=== PATIENT | male | born 1980 | race Caucasian/White ===

== ENCOUNTER 2017-01-31 13:24 | Emergency (ER) | payer OTHER ==
[~2017-01-31] VITALS: Ht 160 cm; Wt 62.7 kg
[~2017-01-31 13:24] MED LIST: NOCURR
[2017-01-31] MEDS ORDERED: HYDR25TA PO (13:33)
[2017-01-31 16:09] VITALS: BP 133/111
== END 2017-01-31 16:10 | disposition home or self-care (01) ==
LOC: EMS 13:26
DX: S83.92XA Sprain of unspecified site of left knee, initial encounter (principal); F15.10 Other stimulant abuse, uncomplicated; I10 Essential (primary) hypertension; F12.90 Cannabis use, unspecified, uncomplicated; X58.XXXA Exposure to other specified factors, initial encounter; Y93.89 Activity, other specified; Y92.89 Other specified places as the place of occurrence of the external cause; Y99.8 Other external cause status
CPT/HCPCS: 99283

== ENCOUNTER 2017-03-06 05:25 | Emergency (ER) | payer OTHER ==
[~2017-03-06] VITALS: Ht 162.6 cm; Wt 66.0 kg
[~2017-03-06 05:25] MED LIST changes: +HYDR25TA PO
[2017-03-06 06:21] VITALS: BP 131/110
== END 2017-03-06 06:26 | disposition home or self-care (01) ==
LOC: EMS 05:26
DX: T23.221A Burn of second degree of single right finger (nail) except thumb, initial encounter (principal); I10 Essential (primary) hypertension; F12.90 Cannabis use, unspecified, uncomplicated; X16.XXXA Contact with hot heating appliances, radiators and pipes, initial encounter; Y93.89 Activity, other specified; Y92.89 Other specified places as the place of occurrence of the external cause; Y99.8 Other external cause status
CPT/HCPCS: 99282

== ENCOUNTER 2017-09-25 12:41 | Emergency (ER) | payer OTHER ==
[~2017-09-25] VITALS: Ht 160 cm; Wt 70.5 kg
[~2017-09-25 12:41] MED LIST changes: -NOCURR
[2017-09-25] MEDS ORDERED: KETOROLAC TROMETHAMINE 30 MG/ML VIAL IVP ONE (15:00)
[2017-09-25] MEDS ORDERED: ONDANSETRON HCL 4 MG/2 ML VIAL IVP ONE (15:00)
[2017-09-25] MEDS ORDERED: DiphenhydrAMINE HCL 50 MG/ML VIAL IVP ONE (15:00)
[2017-09-25] MEDS ORDERED: SODIUM CHLORIDE 0.9% 500 ML IV ONE (15:00)
[2017-09-25 17:25] VITALS: BP 130/100
== END 2017-09-25 17:34 | disposition home or self-care (01) ==
LOC: EMS 12:42
DX: G43.909 Migraine, unspecified, not intractable, without status migrainosus (principal); F19.10 Other psychoactive substance abuse, uncomplicated; F12.10 Cannabis abuse, uncomplicated; I10 Essential (primary) hypertension; Z76.0 Encounter for issue of repeat prescription
CPT/HCPCS: 96361; 96374; 96375; 99285; J1200; J1885; J2405; J7040

== ENCOUNTER 2017-11-08 05:22 | Emergency (ER) | payer OTHER ==
[~2017-11-08] VITALS: Ht 160 cm; Wt 65.9 kg
[2017-11-08 05:25] VITALS: BP 146/100
[2017-11-08] MEDS ORDERED: IBUP-2070 PO (05:28)
[2017-11-08] MEDS ORDERED: EMTR1TAB16 PO (05:28)
[2017-11-08] MEDS ORDERED: HYDR25TA PO (05:28)
== END 2017-11-08 07:58 | disposition left against medical advice (07) ==
LOC: EMS 05:23
DX: R10.9 Unspecified abdominal pain (principal); F12.90 Cannabis use, unspecified, uncomplicated; F15.90 Other stimulant use, unspecified, uncomplicated; Z53.21 Procedure and treatment not carried out due to patient leaving prior to being seen by health care provider

== ENCOUNTER 2017-11-19 00:04 | Emergency (ER) | payer OTHER ==
[~2017-11-19] VITALS: Ht 160 cm; Wt 68.2 kg
[~2017-11-19 00:04] MED LIST changes: +EMTR1TAB16 PO; +IBUP-2070 PO
[2017-11-19 00:12] VITALS: BP 160/108
== END 2017-11-19 01:25 | disposition left against medical advice (07) ==
LOC: EMS 00:05
DX: R51 Headache (principal); Z53.21 Procedure and treatment not carried out due to patient leaving prior to being seen by health care provider

== ENCOUNTER 2018-02-03 17:53 | Emergency (ER) | payer OTHER ==
[~2018-02-03] VITALS: Ht 160 cm; Wt 68.0 kg
[2018-02-03 19:35] VITALS: BP 142/85
== END 2018-02-03 19:40 | disposition home or self-care (01) ==
LOC: EMS 17:56
DX: K08.89 Other specified disorders of teeth and supporting structures (principal); R03.0 Elevated blood-pressure reading, without diagnosis of hypertension; I10 Essential (primary) hypertension; F12.90 Cannabis use, unspecified, uncomplicated; F19.90 Other psychoactive substance use, unspecified, uncomplicated
CPT/HCPCS: 99283

== ENCOUNTER 2018-07-16 05:32 | Emergency (ER) | payer OTHER ==
[~2018-07-16] VITALS: Ht 160 cm; Wt 71.4 kg
[~2018-07-16 05:32] MED LIST changes: -HYDR25TA PO; -IBUP-2070 PO
[2018-07-16] MEDS ORDERED: SIMV-261 PO (05:42)
[2018-07-16 06:23] VITALS: BP 152/97
[2018-07-16] MEDS ORDERED: HydrOXYzine HCL 50 MG TABLET PO ONE (06:30)
[2018-07-16] MEDS ORDERED: SODIUM PHOS/SODIUM BIPHOS 133 ML ENEMA PR ONE (06:30)
== END 2018-07-16 06:55 | disposition home or self-care (01) ==
LOC: EMS 05:32
DX: F15.180 Other stimulant abuse with stimulant-induced anxiety disorder (principal); K59.00 Constipation, unspecified; F12.90 Cannabis use, unspecified, uncomplicated; I10 Essential (primary) hypertension; F32.9 Major depressive disorder, single episode, unspecified; Z79.899 Other long term (current) drug therapy

== ENCOUNTER 2019-04-02 08:47 | Emergency (ER) | payer OTHER ==
[~2019-04-02] VITALS: Ht 162.6 cm; Wt 75.5 kg
[~2019-04-02 08:47] MED LIST changes: -EMTR1TAB16 PO; +SIMV-261 PO
[2019-04-02] MEDS ORDERED: HALOPERIDOL 5 MG TABLET PO ONE (09:15)
[2019-04-02] MEDS ORDERED: LORazepam 2 MG TABLET PO ONE (09:15)
[2019-04-02 10:26] VITALS: BP 152/98
== END 2019-04-02 10:27 | disposition home or self-care (01) ==
LOC: EMS 08:49
DX: F15.10 Other stimulant abuse, uncomplicated (principal); F41.9 Anxiety disorder, unspecified; F32.9 Major depressive disorder, single episode, unspecified; F12.90 Cannabis use, unspecified, uncomplicated; F19.90 Other psychoactive substance use, unspecified, uncomplicated

== ENCOUNTER 2019-04-10 05:57 | Emergency (ER) | payer OTHER ==
[~2019-04-10] VITALS: Ht 162.6 cm; Wt 75.4 kg
[2019-04-10 06:57] LABS: EOSINOPHILS % (AUTO) 0.5 % (1.0-6.0); HEMATOCRIT 45.2 % (41-53); HEMOGLOBIN 15.2 g/dL (13.5-17.5); LYMPHOCYTES % (AUTO) 22.5 % (22.0-44.0); MEAN CORPUSCULAR HEMOGLOBIN 29.4 pg (26.0-34.0); MEAN CORPUSCULAR HGB CONC 33.6 G/dL (31.0-37.0); MEAN CORPUSCULAR VOLUME 87 fL (80-100); MONOCYTES % (AUTO) 10.5 % (2.0-9.0); PLATELET COUNT (AUTO) 296 K/uL (150-450); RED BLOOD CELL COUNT(AUTO) 5.18 MIL/uL (4.50-5.90); RED CELL DISTRIBUTION WIDTH 13.5 % (11.5-14.5)
[2019-04-10 06:58] LABS: BASOPHILS % (AUTO) 0.5 % (0.0-2.0); LYMPHOCYTES # (AUTO) 1.7 K/uL (1.0-4.8); MONOCYTES # (AUTO) 0.8 K/uL (0.1-1.0)
[2019-04-10 07:19] LABS: ANION GAP 12 mmol/L (8-16); CALCIUM, TOTAL 9.3 mg/dL (8.8-10.5); CARBON DIOXIDE 24 mmol/L (22-29); CHLORIDE 102 mmol/L (98-107); CREATININE 0.94 mg/dL (0.60-1.30); GLOMERULAR FILTR. RATE CALC > 60 mL/min (>60); GLUCOSE,RANDOM 94 mg/dL (70-110); POTASSIUM 3.6 mmol/L (3.5-5.1); SODIUM SERUM 138 mmol/L (136-145); UREA NITROGEN, BLOOD 13 mg/dL (7-18)
[2019-04-10 07:23] LABS: ALANINE AMINOTRANSFERASE 31 U/L (12-78); ALBUMIN 4.6 g/dL (3.4-5.0); ALKALINE PHOSPHATASE 91 U/L (46-116); ASPARTATE AMINOTRANSFERASE 23 U/L (15-37); BILIRUBIN,TOTAL 0.6 mg/dL (0.1-1.0); LIPASE 192 U/L (73-393); TOTAL PROTEIN, SERUM 7.7 g/dL (6.4-8.2)
[2019-04-10 07:34] LABS: AMPHET/METH SCREEN,URINE POSITIVE (NEGATIVE); BARBITURATE SCREEN, URINE NEGATIVE (NEGATIVE); BENZODIAZEPINES SCREEN,URINE NEGATIVE (NEGATIVE); CANNABINOID SCREEN,URINE NEGATIVE (NEGATIVE); COCAINE SCREEN,URINE NEGATIVE (NEGATIVE); METHADONE SCREEN, URINE NEGATIVE (NEGATIVE); OPIATE SCREEN,URINE NEGATIVE (NEGATIVE); PHENCYCLIDINE SCREEN,URINE NEGATIVE (NEGATIVE)
[2019-04-10 08:03] VITALS: BP 155/113
== END 2019-04-10 08:16 | disposition home or self-care (01) ==
LOC: EMS 05:58
DX: F41.9 Anxiety disorder, unspecified (principal); F15.90 Other stimulant use, unspecified, uncomplicated; F32.9 Major depressive disorder, single episode, unspecified; I10 Essential (primary) hypertension; F12.90 Cannabis use, unspecified, uncomplicated
CPT/HCPCS: 36415; 80053; 80307; 83690; 85025; 99284; G0480

== ENCOUNTER 2019-04-12 21:04 | Emergency (ER) | payer OTHER | END 2019-04-12 21:30 | disposition left against medical advice (07) | LOC: EMS 21:05 | DX: M79.89 Other specified soft tissue disorders (principal); Z53.21 Procedure and treatment not carried out due to patient leaving prior to being seen by health care provider ==

== ENCOUNTER 2019-04-19 05:19 | Emergency (ER) | payer OTHER ==
[~2019-04-19] VITALS: Ht 162.6 cm; Wt 75.5 kg
[2019-04-19 06:09] LABS: APPEARANCE,URINE CLEAR (CLEAR); BILIRUBIN,URINE NEGATIVE (NEGATIVE); GLUCOSE, URINE (UA) NEGATIVE (NEGATIVE); KETONES,URINE NEGATIVE (NEGATIVE); LEUKOCYTE ESTERASE ,URINE NEGATIVE (NEGATIVE); NITRATE,URINE NEGATIVE (NEGATIVE); OCCULT BLOOD,URINE NEGATIVE (NEGATIVE); PROTEIN,URINE NEGATIVE (NEGATIVE); UROBILINOGEN,URINE 0.2 mg/dL (<=1.0)
[2019-04-19 06:11] LABS: BASOPHILS % (AUTO) 0.3 % (0.0-2.0); EOSINOPHILS % (AUTO) 0.2 % (1.0-6.0); HEMATOCRIT 47.4 % (41-53); HEMOGLOBIN 16.1 g/dL (13.5-17.5); LYMPHOCYTES # (AUTO) 1.4 K/uL (1.0-4.8); MEAN CORPUSCULAR HEMOGLOBIN 29.9 pg (26.0-34.0); MEAN CORPUSCULAR HGB CONC 34.1 G/dL (31.0-37.0); MEAN CORPUSCULAR VOLUME 88 fL (80-100); MONOCYTES # (AUTO) 0.5 K/uL (0.1-1.0); MONOCYTES % (AUTO) 6.8 % (2.0-9.0); NEUTROPHILS # (AUTO) 5.9 K/uL (1.8-7.7); NEUTROPHILS % (AUTO) 74.7 % (40.0-70.0); PLATELET COUNT (AUTO) 379 K/uL (150-450); RED BLOOD CELL COUNT(AUTO) 5.39 MIL/uL (4.50-5.90); RED CELL DISTRIBUTION WIDTH 13.5 % (11.5-14.5)
[2019-04-19 06:13] LABS: AMPHET/METH SCREEN,URINE POSITIVE (NEGATIVE); BARBITURATE SCREEN, URINE NEGATIVE (NEGATIVE); BENZODIAZEPINES SCREEN,URINE NEGATIVE (NEGATIVE); CANNABINOID SCREEN,URINE NEGATIVE (NEGATIVE); COCAINE SCREEN,URINE NEGATIVE (NEGATIVE); METHADONE SCREEN, URINE NEGATIVE (NEGATIVE); OPIATE SCREEN,URINE NEGATIVE (NEGATIVE); PHENCYCLIDINE SCREEN,URINE NEGATIVE (NEGATIVE)
[2019-04-19 06:21] LABS: BACTERIA,URINE None Seen /HPF (None Seen); RBC,URINE 0-2 /HPF (0-2); SQUAMOUS EPITHELIAL CELL,UR None Seen /LPF (None Seen); WBC,URINE 0-2 /HPF (0-5)
[2019-04-19 06:21] LABS: ALANINE AMINOTRANSFERASE 25 U/L (12-78); ALKALINE PHOSPHATASE 92 U/L (46-116); ANION GAP 7 mmol/L (8-16); ASPARTATE AMINOTRANSFERASE 25 U/L (15-37); BILIRUBIN,TOTAL 0.5 mg/dL (0.1-1.0); CARBON DIOXIDE 30 mmol/L (22-29); CHLORIDE 100 mmol/L (98-107); GLOMERULAR FILTR. RATE CALC > 60 mL/min (>60); GLUCOSE,RANDOM 107 mg/dL (70-110); POTASSIUM 4.9 mmol/L (3.5-5.1); SODIUM SERUM 137 mmol/L (136-145); TOTAL PROTEIN, SERUM 8.5 g/dL (6.4-8.2)
[2019-04-19 06:29] LABS: UREA NITROGEN, BLOOD 16 mg/dL (7-18)
[2019-04-19] MEDS ORDERED: ACETAMINOPHEN 500 MG TABLET PO ONE (07:45)
[2019-04-19] MEDS ORDERED: CefTRIAXone SODIUM 1 GM/VIAL IM ONE (08:15)
[2019-04-19] MEDS ORDERED: AZITHROMYCIN 250 MG TABLET PO ONE (08:15)
[2019-04-19 08:35] VITALS: BP 136/97
== END 2019-04-19 08:45 | disposition home or self-care (01) ==
LOC: EMS 05:20
DX: G47.00 Insomnia, unspecified (principal); F20.9 Schizophrenia, unspecified; F15.10 Other stimulant abuse, uncomplicated; F32.9 Major depressive disorder, single episode, unspecified; I10 Essential (primary) hypertension; F19.90 Other psychoactive substance use, unspecified, uncomplicated; Z59.0 Homelessness
CPT/HCPCS: 36415; 80053; 80307; 81001; 85025; 87491; 87591; 93005; 96372; 99284; G0480; J0696

== ENCOUNTER 2020-02-12 11:29 | Emergency (ER) | payer OTHER ==
[~2020-02-12] VITALS: Ht 160 cm; Wt 70.5 kg
[2020-02-12] MEDS ORDERED: ACETAMINOPHEN 325 MG TABLET PO ONE (12:30)
[2020-02-12 12:43] LABS: ANION GAP 7 mmol/L (8-16); CALCIUM, TOTAL 8.8 mg/dL (8.8-10.5); CARBON DIOXIDE 28 mmol/L (22-29); CHLORIDE 102 mmol/L (98-107); CREATININE 1.27 mg/dL (0.60-1.30); GLOMERULAR FILTR. RATE CALC > 60 mL/min (>60); GLUCOSE,RANDOM 100 mg/dL (70-110); POTASSIUM 3.6 mmol/L (3.5-5.1); SODIUM SERUM 137 mmol/L (136-145); UREA NITROGEN, BLOOD 11 mg/dL (7-18)
[2020-02-12 12:49] LABS: ALANINE AMINOTRANSFERASE 33 U/L (12-78); ALKALINE PHOSPHATASE 111 U/L (46-116); ASPARTATE AMINOTRANSFERASE 26 U/L (15-37); BILIRUBIN,TOTAL 0.4 mg/dL (0.1-1.0); TOTAL PROTEIN, SERUM 7.6 g/dL (6.4-8.2)
[2020-02-12 13:04] LABS: BASOPHILS % (AUTO) 0.3 % (0.0-2.0); EOSINOPHILS % (AUTO) 0 % (1.0-6.0); HEMATOCRIT 46.3 % (41-53); HEMOGLOBIN 15.8 g/dL (13.5-17.5); LYMPHOCYTES # (AUTO) 0.8 K/uL (1.0-4.8); LYMPHOCYTES % (AUTO) 17.5 % (22.0-44.0); MEAN CORPUSCULAR HEMOGLOBIN 30.3 pg (26.0-34.0); MEAN CORPUSCULAR HGB CONC 34.1 G/dL (31.0-37.0); MEAN CORPUSCULAR VOLUME 89 fL (80-100); MONOCYTES # (AUTO) 0.5 K/uL (0.1-1.0); MONOCYTES % (AUTO) 11.2 % (2.0-9.0); NEUTROPHILS # (AUTO) 3.3 K/uL (1.8-7.7); PLATELET COUNT (AUTO) 167 K/uL (150-450); RED CELL DISTRIBUTION WIDTH 12.9 % (11.5-14.5)
[2020-02-12 13:46] VITALS: BP 136/97
== END 2020-02-12 14:35 | disposition home or self-care (01) ==
LOC: EMS 11:30
DX: U07.1 COVID-19 (principal); J12.89 Other viral pneumonia; R50.9 Fever, unspecified; M79.10 Myalgia, unspecified site; J45.909 Unspecified asthma, uncomplicated; F32.9 Major depressive disorder, single episode, unspecified; I10 Essential (primary) hypertension; F12.90 Cannabis use, unspecified, uncomplicated; F19.90 Other psychoactive substance use, unspecified, uncomplicated
CPT/HCPCS: 36415; 71045; 80053; 85025; 99284; U0003

== ENCOUNTER 2020-02-17 21:37 | Emergency (ER) | payer OTHER ==
[~2020-02-17] VITALS: Ht 162.6 cm; Wt 69.1 kg
[2020-02-17 23:39] VITALS: BP 140/88
== END 2020-02-18 00:53 | disposition home or self-care (01) ==
LOC: EMS 21:39
DX: U07.1 COVID-19 (principal); F10.10 Alcohol abuse, uncomplicated; F32.9 Major depressive disorder, single episode, unspecified; I10 Essential (primary) hypertension; F12.90 Cannabis use, unspecified, uncomplicated; F19.90 Other psychoactive substance use, unspecified, uncomplicated; J45.909 Unspecified asthma, uncomplicated

== ENCOUNTER 2020-05-19 09:49 | Emergency (ER) | payer OTHER ==
[~2020-05-19] VITALS: Ht 162.6 cm; Wt 72.7 kg
[2020-05-19] MEDS ORDERED: ACETAMINOPHEN 500 MG TABLET PO ONE (11:30)
[2020-05-19 13:11] VITALS: BP 141/92
== END 2020-05-19 13:43 | disposition home or self-care (01) ==
LOC: EMS 09:53
DX: N48.29 Other inflammatory disorders of penis (principal); N48.89 Other specified disorders of penis; J45.909 Unspecified asthma, uncomplicated; F32.9 Major depressive disorder, single episode, unspecified; I10 Essential (primary) hypertension; F12.90 Cannabis use, unspecified, uncomplicated; Z20.828 Contact with and (suspected) exposure to other viral communicable diseases
CPT/HCPCS: 36415; 86592; 86694; 86701; 86702; 86705; 87255; 87491; 87591; 99283; U0003; 12001

== ENCOUNTER 2020-09-23 10:28 | Emergency (ER) | payer OTHER ==
[~2020-09-23] VITALS: Ht 162.6 cm; Wt 70.5 kg
[2020-09-23] MEDS ORDERED: IBUPROFEN 600 MG TABLET PO ONE (11:30)
[2020-09-23] MEDS ORDERED: LORazepam 1 MG TABLET PO ONE (11:30)
[2020-09-23 12:08] VITALS: BP 141/98
== END 2020-09-23 12:12 | disposition home or self-care (01) ==
LOC: EMS 10:28
DX: M79.601 Pain in right arm (principal); F41.9 Anxiety disorder, unspecified; R20.0 Anesthesia of skin; F15.10 Other stimulant abuse, uncomplicated; J45.909 Unspecified asthma, uncomplicated; I10 Essential (primary) hypertension; F32.9 Major depressive disorder, single episode, unspecified; F12.90 Cannabis use, unspecified, uncomplicated; F19.90 Other psychoactive substance use, unspecified, uncomplicated

== ENCOUNTER 2021-03-10 11:17 | Emergency (ER) | payer OTHER ==
[~2021-03-10] VITALS: Ht 162.6 cm; Wt 70.5 kg
[2021-03-10 11:23] VITALS: BP 144/107
== END 2021-03-10 13:17 | disposition left against medical advice (07) ==
LOC: EMS 11:20
DX: Z53.21 Procedure and treatment not carried out due to patient leaving prior to being seen by health care provider (principal)

== ENCOUNTER 2021-04-02 05:31 | Emergency (ER) | payer OTHER ==
[~2021-04-02] VITALS: Ht 162.6 cm; Wt 72.7 kg
[2021-04-02 05:36] VITALS: BP 143/98
== END 2021-04-02 06:34 | disposition left against medical advice (07) ==
LOC: EMS 05:34
DX: R51.9 Headache, unspecified (principal); Z53.21 Procedure and treatment not carried out due to patient leaving prior to being seen by health care provider

== ENCOUNTER 2021-04-12 10:21 | Emergency (ER) | payer OTHER ==
[~2021-04-12] VITALS: Ht 165.1 cm; Wt 70.5 kg
[2021-04-12] MEDS ORDERED: IBUPROFEN 600 MG TABLET PO ONE (11:45)
[2021-04-12 12:35] VITALS: BP 128/76
== END 2021-04-12 12:46 | disposition home or self-care (01) ==
LOC: EMS 10:29
DX: S46.911A Strain of unspecified muscle, fascia and tendon at shoulder and upper arm level, right arm, initial encounter (principal); J45.909 Unspecified asthma, uncomplicated; F32.9 Major depressive disorder, single episode, unspecified; I10 Essential (primary) hypertension; F12.90 Cannabis use, unspecified, uncomplicated; F19.90 Other psychoactive substance use, unspecified, uncomplicated; X58.XXXA Exposure to other specified factors, initial encounter; Y93.89 Activity, other specified; Y92.89 Other specified places as the place of occurrence of the external cause; Y99.8 Other external cause status
CPT/HCPCS: 99283

== ENCOUNTER 2021-05-26 23:34 | Emergency (ER) | payer OTHER ==
[~2021-05-26] VITALS: Ht 162.6 cm; Wt 75.0 kg
[2021-05-27] MEDS ORDERED: ACETAMINOPHEN 500 MG TABLET PO ONE (00:30)
[2021-05-27] MEDS ORDERED: BACITRACIN 0.9 GM PACKET OINTMENT TP ONE (00:30)
[2021-05-27 00:40] VITALS: BP 132/76
== END 2021-05-27 01:00 | disposition home or self-care (01) ==
LOC: EMS 23:38
DX: S61.102A Unspecified open wound of left thumb with damage to nail, initial encounter (principal); J45.909 Unspecified asthma, uncomplicated; F32.9 Major depressive disorder, single episode, unspecified; F20.9 Schizophrenia, unspecified; F12.90 Cannabis use, unspecified, uncomplicated; F19.90 Other psychoactive substance use, unspecified, uncomplicated; W45.8XXA Other foreign body or object entering through skin, initial encounter; Y93.89 Activity, other specified; Y92.89 Other specified places as the place of occurrence of the external cause; Y99.8 Other external cause status
CPT/HCPCS: 99282; Z7502; Z7610

== ENCOUNTER 2022-05-07 06:02 | Emergency (ER) | payer OTHER ==
[~2022-05-07] VITALS: Ht 160 cm; Wt 72.7 kg
[2022-05-07 06:05] VITALS: BP 135/90
[2022-05-07] MEDS ORDERED: AMOX1TAB16 PO (06:22)
== END 2022-05-07 06:42 | disposition home or self-care (01) ==
LOC: EMS 06:03
DX: S61.051A Open bite of right thumb without damage to nail, initial encounter (principal); J45.909 Unspecified asthma, uncomplicated; F32.A Depression, unspecified; I10 Essential (primary) hypertension; F20.9 Schizophrenia, unspecified; G91.9 Hydrocephalus, unspecified; F12.90 Cannabis use, unspecified, uncomplicated; F15.90 Other stimulant use, unspecified, uncomplicated; Z98.890 Other specified postprocedural states; W54.0XXA Bitten by dog, initial encounter; Y93.89 Activity, other specified; Y92.89 Other specified places as the place of occurrence of the external cause; Y99.8 Other external cause status
CPT/HCPCS: 99283; Z7502

== ENCOUNTER 2022-10-09 13:24 | Emergency (ER) | payer OTHER ==
[~2022-10-09] VITALS: Ht 162.6 cm; Wt 63.6 kg
[~2022-10-09 13:24] MED LIST changes: +AMOX1TAB16 PO; -SIMV-261 PO
[2022-10-09] MEDS ORDERED: ChlordiazePOXIDE HCL 25 MG CAPSULE PO ONE (14:15)
[2022-10-09 14:27] LABS: BASOPHILS % (AUTO) 0.5 % (0.0-2.0); HEMATOCRIT 46.8 % (41-53); HEMOGLOBIN 15.8 g/dL (13.5-17.5); LYMPHOCYTES # (AUTO) 1.6 K/uL (1.0-4.8); LYMPHOCYTES % (AUTO) 25.4 % (22.0-44.0); MEAN CORPUSCULAR HEMOGLOBIN 29.9 pg (26.0-34.0); MEAN CORPUSCULAR HGB CONC 33.7 G/dL (31.0-37.0); MEAN CORPUSCULAR VOLUME 89 fL (80-100); MONOCYTES # (AUTO) 0.5 K/uL (0.1-1.0); MONOCYTES % (AUTO) 8.7 % (2.0-9.0); NEUTROPHILS # (AUTO) 3.9 K/uL (1.8-7.7); NEUTROPHILS % (AUTO) 64.4 % (40.0-70.0); PLATELET COUNT (AUTO) 436 K/uL (150-450); RED BLOOD CELL COUNT(AUTO) 5.27 MIL/uL (4.50-5.90); RED CELL DISTRIBUTION WIDTH 13.6 % (11.5-14.5)
[2022-10-09 14:32] LABS: ANION GAP 10 mmol/L (8-16); CALCIUM, TOTAL 9.4 mg/dL (8.8-10.5); CARBON DIOXIDE 28 mmol/L (22-29); CHLORIDE 99 mmol/L (98-107); CREATININE 1.15 mg/dL (0.60-1.30); GLOMERULAR FILTR. RATE CALC > 60 mL/min (>60); GLUCOSE,RANDOM 99 mg/dL (70-110); SODIUM SERUM 137 mmol/L (136-145); UREA NITROGEN, BLOOD 17 mg/dL (7-18)
[2022-10-09 14:38] LABS: ALANINE AMINOTRANSFERASE 32 U/L (12-78); ALBUMIN 4.3 g/dL (3.4-5.0); ALKALINE PHOSPHATASE 107 U/L (46-116); ASPARTATE AMINOTRANSFERASE 26 U/L (15-37); BILIRUBIN,TOTAL 0.5 mg/dL (0.1-1.0); TOTAL PROTEIN, SERUM 8.3 g/dL (6.4-8.2)
[2022-10-09 15:04] VITALS: BP 135/89
== END 2022-10-09 15:06 | disposition home or self-care (01) ==
LOC: EMS 13:33
DX: F10.239 Alcohol dependence with withdrawal, unspecified (principal); J45.909 Unspecified asthma, uncomplicated; F32.A Depression, unspecified; I10 Essential (primary) hypertension; F20.9 Schizophrenia, unspecified; F12.90 Cannabis use, unspecified, uncomplicated; F15.90 Other stimulant use, unspecified, uncomplicated; Z98.890 Other specified postprocedural states; Y90.0 Blood alcohol level of less than 20 mg/100 ml
CPT/HCPCS: 99283; 80053; 85025; 36415; G0480

== ENCOUNTER 2023-01-18 23:31 | Emergency (ER) | payer OTHER ==
[~2023-01-18] VITALS: Ht 162.6 cm; Wt 65.9 kg
[2023-01-18 23:46] VITALS: BP 124/84
[2023-01-19] MEDS ORDERED: FAMOTIDINE 20 MG TABLET PO ONE
[2023-01-19] MEDS ORDERED: DiphenhydrAMINE HCL 25 MG CAPSULE PO ONE
[2023-01-19] MEDS ORDERED: DEXAMETHASONE 4 MG TABLET PO ONE
== END 2023-01-18 23:55 | disposition home or self-care (01) ==
LOC: EMS 23:35
DX: L50.9 Urticaria, unspecified (principal); J45.909 Unspecified asthma, uncomplicated; F32.A Depression, unspecified; I10 Essential (primary) hypertension; F20.9 Schizophrenia, unspecified; F12.90 Cannabis use, unspecified, uncomplicated; F15.90 Other stimulant use, unspecified, uncomplicated; Z98.890 Other specified postprocedural states
CPT/HCPCS: 99284; J8540; Z7502; Z7610

== ENCOUNTER 2023-08-10 14:24 | Emergency (ER) | payer OTHER ==
[~2023-08-10] VITALS: Ht 165.1 cm; Wt 70.5 kg
[2023-08-10 14:29] VITALS: BP 137/93; PULSE 88; RESP 18; TEMP 98.3
[2023-08-10] MEDS ORDERED: DiphenhydrAMINE HCL 50 MG CAPSULE PO ONE (16:30)
[2023-08-10] MEDS ORDERED: DIPH50 PO (16:41)
== END 2023-08-10 17:00 | disposition home or self-care (01) ==
LOC: EMS 14:24
DX: L25.9 Unspecified contact dermatitis, unspecified cause (principal); J45.909 Unspecified asthma, uncomplicated; F32.A Depression, unspecified; I10 Essential (primary) hypertension; F20.9 Schizophrenia, unspecified; F12.90 Cannabis use, unspecified, uncomplicated; F15.90 Other stimulant use, unspecified, uncomplicated; Z98.890 Other specified postprocedural states
CPT/HCPCS: 99282; Z7502; Z7610

== ENCOUNTER 2024-06-11 18:28 | Emergency (ER) | payer OTHER ==
[~2024-06-11] VITALS: Ht 162.6 cm; Wt 72.7 kg
[~2024-06-11 18:28] MED LIST changes: -AMOX1TAB16 PO; +DIPH50 PO
[2024-06-11 18:40] VITALS: BP 158/111; PULSE 91; RESP 20; TEMP 98.4; O2SAT 99
[2024-06-11 18:47] LABS: COVID AG,FIA SOURCE NASAL SWAB
[2024-06-11 19:10] LABS: SARS-COV2 (COVID) ANTIGEN,FIA Negative (Negative)
[2024-06-11 19:12] LABS: INFLUENZA TYPE A NEGATIVE FOR TYPE A (NEGATIVE); INFLUENZA TYPE B NEGATIVE FOR TYPE B (NEGATIVE)
[2024-06-11] MEDS ORDERED: IBUP-1492 PO (19:24)
[2024-06-11] MEDS ORDERED: ACET-3385 PO (19:24)
[2024-06-11] MEDS: ACETAMINOPHEN 500 MG TABLET PO ONE (19:40)
== END 2024-06-11 19:51 | disposition home or self-care (01) ==
LOC: EMS 18:28
DX: B34.9 Viral infection, unspecified (principal); J45.909 Unspecified asthma, uncomplicated; I10 Essential (primary) hypertension; F20.9 Schizophrenia, unspecified; F32.A Depression, unspecified; F12.90 Cannabis use, unspecified, uncomplicated; F15.90 Other stimulant use, unspecified, uncomplicated; Z88.2 Allergy status to sulfonamides; Z98.890 Other specified postprocedural states; Z20.822 Contact with and (suspected) exposure to COVID-19
CPT/HCPCS: 87804; 99283

== ENCOUNTER 2024-12-12 16:57 | Emergency (ER) | payer OTHER ==
[~2024-12-12] VITALS: Ht 162.6 cm; Wt 75.0 kg
[~2024-12-12 16:57] MED LIST changes: +ACET-3385 PO; -DIPH50 PO; +IBUP-1492 PO
[2024-12-12 17:01] VITALS: TEMP 98.1
[2024-12-12 17:39] VITALS: BP 153/123; PULSE 95; RESP 18; O2SAT 99
[2024-12-12] MEDS: PredniSONE 20 MG TABLET PO ONE (18:09)
[2024-12-12] MEDS ORDERED: HYDR-4268 TP (19:17)
== END 2024-12-12 19:31 | disposition home or self-care (01) ==
LOC: EMS 16:57
DX: S60.222A Contusion of left hand, initial encounter (principal); L20.9 Atopic dermatitis, unspecified; J45.909 Unspecified asthma, uncomplicated; I10 Essential (primary) hypertension; F12.90 Cannabis use, unspecified, uncomplicated; F20.9 Schizophrenia, unspecified; X58.XXXA Exposure to other specified factors, initial encounter; Y93.89 Activity, other specified; Y92.89 Other specified places as the place of occurrence of the external cause; Y99.8 Other external cause status
CPT/HCPCS: 99283; 73130; J7512

== ENCOUNTER 2024-12-24 23:11 | Emergency (ER) | payer OTHER ==
[~2024-12-24 23:11] MED LIST changes: -ACET-3385 PO; +HYDR-4268 TP; -IBUP-1492 PO
== END 2024-12-24 23:36 | disposition left against medical advice (07) ==
LOC: EMS 23:11
DX: F41.9 Anxiety disorder, unspecified (principal); Z53.21 Procedure and treatment not carried out due to patient leaving prior to being seen by health care provider